=== PATIENT | female | born 1970 | race Caucasian/White ===

== ENCOUNTER → 2016-05-03 | Day surgery (SDC) | payer OTHER ==
[2015-07-08 21:14] VITALS: BP 135/92
--- NOTE | 2016-05-03 17:20 | NUR ---
ALL MEDICATIONS ADMINISTERED BY ANESTHESIA PROVIDER, SEE ANESTHESIA RECORD.
== END ==
LOC: MSO 13:20
DX: R13.10 Dysphagia, unspecified (principal); Z87.891 Personal history of nicotine dependence; K31.7 Polyp of stomach and duodenum; R59.0 Localized enlarged lymph nodes
CPT/HCPCS: 00740; A4649; J7120